=== PATIENT | male | born 1980 | race African-American/Black ===

== ENCOUNTER 2018-10-08 21:52 | Inpatient (IN) | payer MEDICARE ==
[~2018-10-08] VITALS: Ht 182.9 cm; Wt 94.8 kg
[2018-10-08] MEDS ORDERED: IV NORMAL SALINE 500 ML BAG IV ONE (22:15)
--- NOTE | 2018-10-08 22:20 | NUR ---
Patient ambulated with stable gait. Speech is not clear, and has trouble speaking. Patient is alert and oriented but appears aphasic. Patient came for c/o slurred speech since 1400 10/07/18. Last well known date was 10/07/18 @ 0930 per patient's girlfriend. Respiratory even and unlabored, no cough no sob. No cardiovascular distress noted. Denies any n/v/d light headedness. Patient in bed at lowest position, seizure precautions implemented. Girlfriend at bedside accompanying patient.
[2018-10-08] MEDS ORDERED: CLONIDINE HCL 0.2 MG TABLET PO ONE (22:30)
[2018-10-08] MEDS ORDERED: SERT100T PO (22:31)
[2018-10-08] MEDS ORDERED: CLONIDINE HCL 0.2 MG TABLET ONE (22:31)
[2018-10-08] MEDS ORDERED: IRBE300T19 PO (22:31)
--- NOTE | 2018-10-08 22:32 | NUR ---
Patient transported to CT in stable condition.
[2018-10-08 22:41] LABS: CREATININE 2.2 mg/dL (0.6-1.3); POTASSIUM 4.1 mmol/L (3.5-5.1)
[2018-10-08 22:42] LABS: BASOPHILS % (AUTO) 0.4 % (0.0-2.0); EOSINOPHILS # (AUTO) 0.1 K/uL (0.0-0.7); EOSINOPHILS % (AUTO) 1.5 % (0.0-7.0); HEMATOCRIT 46.6 % (36.7-47.1); LYMPHOCYTES # (AUTO) 1.9 K/uL (20.0-40.0); LYMPHOCYTES % (AUTO) 22.1 % (20.5-51.5); MEAN CORPUSCULAR HEMOGLOBIN 30.6 uug (23.8-33.4); MEAN CORPUSCULAR HGB CONC 34 g/dL (32.5-36.3); MEAN CORPUSCULAR VOLUME 89.1 fL (73.0-96.2); MONOCYTES # (AUTO) 0.9 K/uL (2.0-10.0); MONOCYTES % (AUTO) 9.8 % (0.0-11.0); NEUTROPHILS # (AUTO) 5.8 K/uL (1.8-8.9); NEUTROPHILS % (AUTO) 66.2 % (38.5-71.5); PLATELET COUNT (AUTO) 118 K/uL (152-348); RED BLOOD CELL COUNT(AUTO) 5.23 MIL/uL (4.06-5.63); WHITE BLOOD COUNT (AUTO) 8.7 K/uL (3.6-10.2)
[2018-10-08 22:47] LABS: BILIRUBIN,DIRECT 0.1 mg/dL (0.0-0.2); BILIRUBIN,TOTAL 0.7 mg/dL (0.2-1.0); TOTAL PROTEIN, SERUM 8.4 g/dL (6.4-8.2)
[2018-10-08] MEDS ORDERED: LABETALOL HCL 100 MG/20 ML VIAL ONE (23:14)
[2018-10-08] MEDS ORDERED: LABETALOL HCL 100 MG/20 ML VIAL IV ONE (23:15)
[2018-10-08] MEDS ORDERED: ASPIRIN 325 MG TABLET ONE (23:24)
--- NOTE | 2018-10-08 23:26 | NUR ---
Report given to JANNETH Correia
[2018-10-08] MEDS ORDERED: ASPIRIN 325 MG TABLET PO ONE (23:30)
[2018-10-08] MEDS ORDERED: hydrALAZINE HCL 20 MG/1 ML VIAL IV PRN (23:30)
[2018-10-08] MEDS ORDERED: ACETAMINOPHEN 325 MG TABLET PO PRN (23:30)
[2018-10-08] MEDS ORDERED: MORPHINE SULFATE 2 MG/1 ML DISP.SYRIN IV PRN (23:45)
[2018-10-08] MEDS ORDERED: ONDANSETRON 4 MG/2 ML VIAL IV PRN (23:45)
[2018-10-08] MEDS ORDERED: ADALAT PO (23:52)
[2018-10-08] MEDS ORDERED: LEVE500T9 PO (23:52)
[2018-10-09 00:01] LABS: MAGNESIUM 2.3 mg/dL (1.8-2.4)
[2018-10-09 00:03] LABS: THYROID STIMULATING HORMONE 4.909 mIU/mL (0.358-3.740)
--- NOTE | 2018-10-09 00:45 | NUR ---
ADMITTED PATIENT ON TELE FLOOR UNDER THE CARE OF JAZMINE CANTOR, BELONGING LIST DONE. PATIENT ALERT ORIENTED WITH ASPHASIA, NO WEAKNESS NOTED ON BOTH UPPERS ARMS, BOTH LOWER ARMS, CONT TO MONITOR.
[2018-10-09 00:54] VITALS: BP 125/90
--- NOTE | 2018-10-09 00:58 | NUR ---
Patient transported to TELE in stable condition.
[2018-10-09] MEDS: IV NS 1000 ML 1,000 ML IV PRN ×2 (01:00→16:42)
--- NOTE | 2018-10-09 02:04 | NUR ---
NOTIFY EDER JOHN REGARDING PATIENT REQUEST FOR SLEEPING MEDICATIONS, WITH ORDER.
[2018-10-09 02:10] LABS: *BILIRUBIN,URIN NEGATIVE (NEGATIVE); *CLARITY,URINE CLEAR (CLEAR); *COLOR,URINE YELLOW (YELLOW); *KETONES,URINE NEGATIVE (NEGATIVE); *UROBILINOGEN,URINE 0.2 E.U./dl (NORMAL); LEUKOCYTE ESTERASE ,URINE NEGATIVE (NEGATIVE); NITRITE, URINE NEGATIVE (NEGATIVE); PH,URINE 5.5 (5.0-8.0); UGLUCOSE NEGATIVE (NEGATIVE)
[2018-10-09 02:12] LABS: *BLOOD, URINE TRACE (NEGATIVE)
[2018-10-09] MEDS: ZOLPIDEM 5 MG TABLET PO PRN ×2 (02:13→21:19)
[2018-10-09 02:16] LABS: BACTERIA,URINE NONE SEEN /HPF (NONE SEEN); RBC,URINE 0-3 /HPF (0-3); WBC,URINE 0-3 /HPF (0-3)
[2018-10-09 02:17] LABS: SQUAMOUS EPITHELIAL CELL,UR FEW /HPF (NONE SEEN)
[2018-10-09 04:00] VITALS: BP 115/80
[2018-10-09 06:33] LABS: BASOPHILS % (AUTO) 0.3 % (0.0-2.0); EOSINOPHILS # (AUTO) 0.1 K/uL (0.0-0.7); EOSINOPHILS % (AUTO) 1.9 % (0.0-7.0); HEMATOCRIT 43.9 % (36.7-47.1); HEMOGLOBIN 14.9 g/dL (12.5-16.3); LYMPHOCYTES # (AUTO) 1.8 K/uL (20.0-40.0); LYMPHOCYTES % (AUTO) 23.7 % (20.5-51.5); MEAN CORPUSCULAR HEMOGLOBIN 30.6 uug (23.8-33.4); MEAN CORPUSCULAR HGB CONC 34 g/dL (32.5-36.3); MEAN CORPUSCULAR VOLUME 90.4 fL (73.0-96.2); MONOCYTES # (AUTO) 0.6 K/uL (2.0-10.0); NEUTROPHILS # (AUTO) 5.1 K/uL (1.8-8.9); NEUTROPHILS % (AUTO) 66.1 % (38.5-71.5); PLATELET COUNT (AUTO) 106 K/uL (152-348); RED BLOOD CELL COUNT(AUTO) 4.86 MIL/uL (4.06-5.63); WHITE BLOOD COUNT (AUTO) 7.7 K/uL (3.6-10.2)
[2018-10-09 06:38] LABS: POTASSIUM 3.6 mmol/L (3.5-5.1)
--- NOTE | 2018-10-09 06:43 | NUR ---
PATIENT ALERT ORIENTED, APHASIC BUT PATIENT ABLE TO VERBALIZE NEEDS. PATIENT WAS GIVEN HAND OUT OF SMOKING CESSATION, AND STROKE PACKET FOR INSTRUCTIONS. PATIENT IN TELE MONITOR SINUS RHYTHM AT THIS TIME, NO SOB NO CHEST PAIN NOTED. CONT TO MONITOR.
[2018-10-09] MEDS: PANTOPRAZOLE SODIUM 40 MG TABLET.DR PO SCH (06:50)
--- NOTE | 2018-10-09 07:20 | NUR ---
RECEIVED PATIENT IN BED ASLEEP EASILY AROUSABLE ON ROUNDS NODS HEAD TO YES AND NO RESPONSES BUT HAS EXPRESSIVE APHASIA AT THIS TIME REMAIN ON TELE WITH NO ECTOPY NO SOB CALL LIGHTS AND PERSONAL BELONGINGS ARE WITHIN EASY REACH WILL CONTINUE TO OBSERVE
[2018-10-09] MEDS ORDERED: GADOTERIDOL 279.3 MG/ML, 15 ML VIAL ONE (08:10)
[2018-10-09] MEDS: SERTRALINE HCL 100 MG TABLET PO SCH (08:47)
[2018-10-09] MEDS: LOSARTAN POTASSIUM 50 MG TABLET PO SCH (08:48)
[2018-10-09] MEDS: ASPIRIN EC 81 MG TABLET.DR PO SCH (08:48)
[2018-10-09] MEDS ORDERED: SERTRALINE HCL 100 MG TABLET PO SCH (09:00)
--- NOTE | 2018-10-09 09:11 | NUR ---
FOLLOWING COMMAND BUT UNABLE TO EXPRESS HIMSELF ALLL NEEDS MUST BE ANTICIPATED AND SATISFIED
[2018-10-09] MEDS ORDERED: ADALAT PO SCH (09:30)
[2018-10-09] MEDS ORDERED: LEVETIRACETAM 500 MG TABLET PO SCH (09:30)
--- NOTE | 2018-10-09 09:44 | NUR ---
PATIENT SEEN BY THE PHYSICAL THERAPY FOR THERAPEUTIC EXERCISES ABLE TO WALK IN THE [address] WAY WITH CONTACT GUARG ASSIST AND BACK TO THE CHAIR AND PER THE THERAPIST PATIENT WILL NOT REQUIRE PHYSICAL THERAPY AT THIS TIME
[2018-10-09 11:41] VITALS: BP 133/85
[2018-10-09 12:13] LABS: *BILIRUBIN,URIN NEGATIVE (NEGATIVE); *BLOOD, URINE NEGATIVE (NEGATIVE); *CLARITY,URINE CLEAR (CLEAR); *COLOR,URINE YELLOW (YELLOW); *KETONES,URINE NEGATIVE (NEGATIVE); *UROBILINOGEN,URINE 0.2 E.U./dl (NORMAL); LEUKOCYTE ESTERASE ,URINE NEGATIVE (NEGATIVE); NITRITE, URINE NEGATIVE (NEGATIVE); UGLUCOSE NEGATIVE (NEGATIVE)
[2018-10-09 12:18] LABS: BACTERIA,URINE NONE SEEN /HPF (NONE SEEN); RBC,URINE 0-3 /HPF (0-3); WBC,URINE 0-3 /HPF (0-3)
[2018-10-09] MEDS ORDERED: NIFE90TA2 PO (12:18)
[2018-10-09 12:19] LABS: SQUAMOUS EPITHELIAL CELL,UR FEW /HPF (NONE SEEN)
[2018-10-09] MEDS: NIFEdipine XL 90 MG TABSR PO SCH ×2 (12:56→16:42)
--- NOTE | 2018-10-09 14:15 | NUR ---
PATIENT PICKED UP BY AMBULANCE FOR MRI OF THE BRAIN ORDERED IN SATISFACTORY CONDITION.
[2018-10-09] MEDS ORDERED: ALLO300T2 PO (14:50)
[2018-10-09 16:00] LABS: *CREATININE,URINE 59.9 mg/dL (30-125); *URINE TOTAL PROTEIN RANDOM 81.8 mg/dL (<150/24HR)
--- NOTE | 2018-10-09 16:30 | NUR ---
PATIENT RETURNED BACK TO HIS ROOM BY AMBULANCE S/P MRI OF THE BRAIN IN SATISFACTORY CONDITION.
[2018-10-09 16:32] VITALS: BP 133/90
--- NOTE | 2018-10-09 18:00 | NUR ---
RESULT OF THE MRI OF THE BRAIN RELAYED TO DR FRANCHESKA ALEJANDRE STATED THAT THE NEUROLOGIST WILL SEE PATIENT.
[2018-10-09 20:31] VITALS: BP 126/82
[2018-10-09] MEDS: LEVETIRACETAM 500 MG TABLET PO SCH (20:34)
[2018-10-09] MEDS: ATORVASTATIN 40 MG TABLET PO SCH (20:34)
[2018-10-09] MEDS ORDERED: ATORVASTATIN 20 MG TABLET PO SCH (21:00)
[2018-10-10] MEDS: PANTOPRAZOLE SODIUM 40 MG TABLET.DR PO SCH (06:04)
[2018-10-10] MEDS: IV NS 1000 ML 1,000 ML IV PRN ×2 (06:07→23:23)
[2018-10-10 06:18] VITALS: BP 119/82
--- NOTE | 2018-10-10 07:20 | NUR ---
RECEIVED PATIENT SITTING UP ON THE CHAIR ABLE TO EXPRESS SELF BETTER IN TERMS OF HIS APHASIA ALERT AND ORIENTED REMAIN ON IVF ORDERED THROUGH HIS RIGHT ANTECUBITAL WITH NO S/S OF INFILTERATION ON SITE.NO SEIZURE ACTIVITIES .CALL LIGHTS AND PERSONAL BELONGINGS PLACED WITHIN EASY REACH MADE COMFORTABLE WILL CONTINIE TO OBSERVE.
[2018-10-10] MEDS: ASPIRIN EC 81 MG TABLET.DR PO SCH (08:30)
[2018-10-10] MEDS: SERTRALINE HCL 100 MG TABLET PO SCH (08:30)
[2018-10-10] MEDS: LEVETIRACETAM 500 MG TABLET PO SCH ×2 (08:30→20:29)
[2018-10-10] MEDS: LOSARTAN POTASSIUM 50 MG TABLET PO SCH (08:31)
[2018-10-10] MEDS ORDERED: NIFEdipine XL 90 MG TABSR PO SCH (09:00)
--- NOTE | 2018-10-10 10:30 | NUR ---
SPEECH THERAPIST HERE SEEN PATIENT AWAITING FOR INPUT AT THIS TIME
--- NOTE | 2018-10-10 11:26 | NUR ---
PATIENT SEEN AND EXAMINED BY ROSEY REGISTERED PHLEBOTOMIST PART TIME WITH NEW ORDERS AND NOTED
[2018-10-10 11:50] LABS: PHOSPHOROUS 2.7 mg/dL (2.5-4.9); POTASSIUM 4.3 mmol/L (3.5-5.1)
[2018-10-10 12:00] VITALS: BP 153/105
[2018-10-10 12:22] LABS: BASOPHILS % (AUTO) 0.4 % (0.0-2.0); CREATININE 1.7 mg/dL (0.6-1.3); EOSINOPHILS # (AUTO) 0.1 K/uL (0.0-0.7); EOSINOPHILS % (AUTO) 1.4 % (0.0-7.0); HEMATOCRIT 45.8 % (36.7-47.1); HEMOGLOBIN 15.7 g/dL (12.5-16.3); LYMPHOCYTES # (AUTO) 1.4 K/uL (20.0-40.0); LYMPHOCYTES % (AUTO) 16.8 % (20.5-51.5); MEAN CORPUSCULAR HEMOGLOBIN 30.6 uug (23.8-33.4); MEAN CORPUSCULAR HGB CONC 34 g/dL (32.5-36.3); MEAN CORPUSCULAR VOLUME 89.5 fL (73.0-96.2); MONOCYTES # (AUTO) 0.6 K/uL (2.0-10.0); MONOCYTES % (AUTO) 7.5 % (0.0-11.0); NEUTROPHILS # (AUTO) 6.3 K/uL (1.8-8.9); NEUTROPHILS % (AUTO) 73.9 % (38.5-71.5); PLATELET COUNT (AUTO) 120 K/uL (152-348); RED BLOOD CELL COUNT(AUTO) 5.12 MIL/uL (4.06-5.63); WHITE BLOOD COUNT (AUTO) 8.5 K/uL (3.6-10.2)
--- NOTE | 2018-10-10 12:25 | NUR ---
PATIENT C/O FEELING ANXIOUS CALLED AND NOTIFIED VIOLETA CANTOR WITH ORDER FOR ATIVAN GIVEN AT 1241 AND HELPFUL.
[2018-10-10] MEDS: LORAZEPAM 0.5 MG TABLET PO PRN (12:41)
[2018-10-10 16:45] VITALS: BP 149/110
--- NOTE | 2018-10-10 17:00 | NUR ---
B/P 149/110 CALLED FAIZA CANTOR AND LEFT HER A MESSAGE PATIENT HAS NO SYMPTOMS AND IS SITTING UP ON THE CHAIR AT THIS TIME.
--- NOTE | 2018-10-10 17:00 | NUR ---
PATIENT SEEN BY [facility] REAL ESTATE REP WITH NEW ORDERS AND NOTED DID TALK WITH THE PATIENT AND THE FIANCE AND EXPLAINED TO THEM THE NEXT PLAN OF CARE AND THEY EXPRESSED UNDERSTANDING.
--- NOTE | 2018-10-10 18:09 | NUR ---
IV SITE RIGHT AC IS INFILTERATED NEW ONE INSERTED TO HIS LEFT HAND GAUGE 20 REMAIN ON IVF ORDERED.
[2018-10-10 19:30] VITALS: BP 159/109
[2018-10-10 19:50] VITALS: BP 159/109
[2018-10-10] MEDS ORDERED: NIFEdipine XL 90 MG TABSR PO ONE (20:00)
--- NOTE | 2018-10-10 20:00 | NUR ---
Patient received sitting up in bed with family at bedside. Patient is alert and oriented x4 and h as no complaints of pain or discomfort at this time. IV on right hand is patent and intact and running NS IVF is running at 100mL/hr. All safety and fall precaution measures are in place. Call light and personal items are within reach at all times. Will continue to monitor.
[2018-10-10] MEDS: ATORVASTATIN 40 MG TABLET PO SCH (20:25)
[2018-10-10] MEDS: ZOLPIDEM 5 MG TABLET PO PRN (23:28)
[2018-10-11 00:03] VITALS: BP 149/100
[2018-10-11 04:00] VITALS: BP 144/104
--- NOTE | 2018-10-11 05:00 | NUR ---
Patient slept comfortably throughout night with no complaints of pain or discomfort at verbalized. IV on right hand is patent and intact and running NS IVF at 100mL/hr. All safety and fall precaution measures are in place. Call light and personal items are within reach at all times.
[2018-10-11] MEDS: PANTOPRAZOLE SODIUM 40 MG TABLET.DR PO SCH (06:09)
[2018-10-11 06:40] LABS: BASOPHILS % (AUTO) 0.4 % (0.0-2.0); EOSINOPHILS # (AUTO) 0.2 K/uL (0.0-0.7); EOSINOPHILS % (AUTO) 2.1 % (0.0-7.0); HEMATOCRIT 42.5 % (36.7-47.1); HEMOGLOBIN 14.9 g/dL (12.5-16.3); LYMPHOCYTES # (AUTO) 1.7 K/uL (20.0-40.0); LYMPHOCYTES % (AUTO) 19.9 % (20.5-51.5); MEAN CORPUSCULAR HGB CONC 35 g/dL (32.5-36.3); MEAN CORPUSCULAR VOLUME 88.6 fL (73.0-96.2); MONOCYTES # (AUTO) 0.8 K/uL (2.0-10.0); MONOCYTES % (AUTO) 9.1 % (0.0-11.0); NEUTROPHILS # (AUTO) 5.8 K/uL (1.8-8.9); NEUTROPHILS % (AUTO) 68.5 % (38.5-71.5); PLATELET COUNT (AUTO) 108 K/uL (152-348); WHITE BLOOD COUNT (AUTO) 8.5 K/uL (3.6-10.2)
[2018-10-11 06:51] LABS: CREATININE 1.6 mg/dL (0.6-1.3); PHOSPHOROUS 3.1 mg/dL (2.5-4.9); POTASSIUM 4.2 mmol/L (3.5-5.1)
--- NOTE | 2018-10-11 08:00 | NUR ---
Pt. is resting in bed alert oriented x4, speech delayed due to stroke. IV in R hand 20 guage intact patent running fluids. Pt. on tele monitor. Pt. denies any pain or discomfort. Pt. denies any feelings of SOB or difficulty breathing. Safety measures in place. Will continue to monitor.
[2018-10-11 08:52] VITALS: BP 158/106
[2018-10-11] MEDS: LEVETIRACETAM 500 MG TABLET PO SCH ×2 (09:06→21:27)
[2018-10-11] MEDS: SERTRALINE HCL 100 MG TABLET PO SCH (09:07)
[2018-10-11] MEDS: LOSARTAN POTASSIUM 50 MG TABLET PO SCH (09:07)
[2018-10-11] MEDS: ASPIRIN EC 81 MG TABLET.DR PO SCH (09:07)
[2018-10-11] MEDS: CLOPIDOGREL 75 MG TABLET PO SCH (09:07)
--- NOTE | 2018-10-11 09:50 | NUR ---
Pt. on plavix for stroke. Platelet count 108. Charge nurse made aware and to continue to give plavix. Educated pt. on S&S of stroke and prevention of stroke. Pt. is understanding of information. Pt. speech delayed but attempting to speak.
--- NOTE | 2018-10-11 09:50 | NUR ---
Pt. on Plavix 75 mg Addendum: 10/11/18 at 0950 by MAX NAM RN Amended: Links added.
[2018-10-11 11:34] VITALS: BP 139/96
[2018-10-11 11:34] LABS: *RHEUMATOID FACTOR SCREEN NEGATIVE (NEGATIVE)
[2018-10-11] MEDS ORDERED: MAGNESIUM HYDROXIDE 30 ML LIQUID UDC PO PRN (12:00)
[2018-10-11] MEDS ORDERED: BISACODYL 10 MG SUPP.RECT RC PRN (12:00)
[2018-10-11] MEDS: NIFEdipine XL 60 MG TABSR PO SCH ×2 (12:20→21:27)
[2018-10-11] MEDS: LORAZEPAM 0.5 MG TABLET PO PRN (12:20)
--- NOTE | 2018-10-11 13:37 | NUR ---
Ativan given PO per request of patient for anxiety. PT. d/c from telemetry to med surg. Pt. had large bowel movement today after prune juice. Will continue to monitor pt.
[2018-10-11 16:02] VITALS: BP 152/105
--- NOTE | 2018-10-11 19:00 | NUR ---
Pt. resting in bed throughout shift with girlfriend at bedside. IV in R hand 20 gauge intact patent hep lock. Bed rails padded for seizure preautions. Stool sample sent to lab. Pt. d/c from telemetry. Safety measures in place. Call light within reach. Will endorse to PM nurse.
[2018-10-11 20:00] VITALS: BP 160/110
[2018-10-11] MEDS ORDERED: DOCUSATE SODIUM 100 MG CAPSULE PO SCH (21:00)
[2018-10-11] MEDS: ATORVASTATIN 40 MG TABLET PO SCH (21:27)
[2018-10-12 05:18] VITALS: BP 143/102
[2018-10-12 06:06] LABS: HEPATITIS B SURFACE AB Non Reactive (.); HEPATITIS B SURFACE AG Negative (Negative)
[2018-10-12 06:27] LABS: BASOPHILS % (AUTO) 0.4 % (0.0-2.0); EOSINOPHILS # (AUTO) 0.2 K/uL (0.0-0.7); EOSINOPHILS % (AUTO) 2.4 % (0.0-7.0); HEMATOCRIT 45.2 % (36.7-47.1); HEMOGLOBIN 15.7 g/dL (12.5-16.3); LYMPHOCYTES # (AUTO) 1.9 K/uL (20.0-40.0); LYMPHOCYTES % (AUTO) 20.7 % (20.5-51.5); MEAN CORPUSCULAR HEMOGLOBIN 31.1 uug (23.8-33.4); MEAN CORPUSCULAR HGB CONC 35 g/dL (32.5-36.3); MEAN CORPUSCULAR VOLUME 89.3 fL (73.0-96.2); MONOCYTES # (AUTO) 0.8 K/uL (2.0-10.0); MONOCYTES % (AUTO) 8.8 % (0.0-11.0); NEUTROPHILS # (AUTO) 6.3 K/uL (1.8-8.9); NEUTROPHILS % (AUTO) 67.7 % (38.5-71.5); PLATELET COUNT (AUTO) 122 K/uL (152-348); RED BLOOD CELL COUNT(AUTO) 5.06 MIL/uL (4.06-5.63); WHITE BLOOD COUNT (AUTO) 9.3 K/uL (3.6-10.2)
[2018-10-12 06:30] LABS: BILIRUBIN,TOTAL 0.6 mg/dL (0.2-1.0); CREATININE 1.8 mg/dL (0.6-1.3); PHOSPHOROUS 3.8 mg/dL (2.5-4.9); POTASSIUM 4.1 mmol/L (3.5-5.1); TOTAL PROTEIN, SERUM 7.8 g/dL (6.4-8.2)
[2018-10-12] MEDS: PANTOPRAZOLE SODIUM 40 MG TABLET.DR PO SCH (06:42)
--- NOTE | 2018-10-12 07:15 | NUR ---
Received Patient in Bed, awake and Responsive. No signs of Respiratory distress noted. No Complain of Pain or Discomfort. IV site on Right Hand Gauge 20 intact. All needs attended and met. will continue to monitor.
[2018-10-12] MEDS: ASPIRIN EC 81 MG TABLET.DR PO SCH (09:50)
[2018-10-12] MEDS: LOSARTAN POTASSIUM 50 MG TABLET PO SCH (09:50)
[2018-10-12] MEDS: SERTRALINE HCL 100 MG TABLET PO SCH (09:51)
[2018-10-12] MEDS: LEVETIRACETAM 500 MG TABLET PO SCH (09:51)
[2018-10-12] MEDS: NIFEdipine XL 60 MG TABSR PO SCH (09:51)
[2018-10-12] MEDS: CLOPIDOGREL 75 MG TABLET PO SCH (09:51)
[2018-10-12 10:08] LABS: ALBUMIN 3.8 g/dL (2.9-4.4); ALPHA-1-GLOBULIN 0.2 g/dL (0.0-0.4); ALPHA-2-GLOBULIN 0.8 g/dL (0.4-1.0); BETA GLOBULIN 1.3 g/dL (0.7-1.3); GAMMA GLOBULIN 1.3 g/dL (0.4-1.8); GLOBULIN, TOTAL 3.7 g/dL (2.2-3.9); M-SPIKE Not Observed g/dL (Not Observed)
[2018-10-12] MEDS ORDERED: NIFE60TA2 PO (10:55)
[2018-10-12] MEDS ORDERED: ATOR40TA PO (10:55)
[2018-10-12] MEDS ORDERED: CLOP75TA33 PO (10:55)
[2018-10-12] MEDS ORDERED: ASPI-618 PO (10:55)
[2018-10-12] MEDS ORDERED: LOSA50TA3 PO (10:55)
[2018-10-12 11:02] VITALS: BP 153/101
[2018-10-12 11:09] LABS: *IMMUNOGLOBULIN G, SERUM 1378 mg/dL (700-1600); IMMUNOGLOBULIN A, SERUM 365 mg/dL (90-386); IMMUNOGLOBULIN M, SERUM 57 mg/dL (20-172)
--- NOTE | 2018-10-12 11:45 | NUR ---
Patient was seen and examined by SAKSHI Valentine with Order to Discharge today.
--- NOTE | 2018-10-12 12:00 | NUR ---
patient in bed awake and verbally responsive, patient with discharge order today, Discharged Instructions and printed materials given to patient and verbalized understanding, patient with Prescription Order, Pharmacy explained Medication instructions to patient and responsible libertarian (girlfriend) verbalized Understanding. Removed IV access and wrist band. All belongings was sent to patient. Patient was accompanied by girlfriend out of the building.
[2018-10-12 12:07] LABS: PTT-LA 39.4 sec (0.0-51.9); THROMBIN TIME 17.6 sec (0.0-23.0)
[2018-10-12 17:09] LABS: *ANTI-SCLERODERMA-70 AB <0.2 AI (0.0-0.9); *SJOGREN'S ANTI-SS-A <0.2 AI (0.0-0.9); *SJOGREN'S ANTI-SS-B <0.2 AI (0.0-0.9); *SMITH ANTIBODIES <0.2 AI (0.0-0.9); ANTI-DNA(DS) AB, QN <1 IU/mL (0-9)
[2018-10-13 04:06] LABS: LUPUS INTERPRETATION Comment: (.)
[2018-10-13 15:06] LABS: BETA-2-GLYCOPROTEIN IGG/M/A < 9 (0-25)
== END 2018-10-12 12:31 | disposition home or self-care (01) | DRG 64 ==
LOC: ER 21:55 → TELE3 23:05 → MEDSURG3 10-11 13:45
PROVIDERS: ADMIT Nurse Practitioner Acute Care; ATTEND Nurse Practitioner Acute Care
DX: I63.9 Cerebral infarction, unspecified (principal); N17.0 Acute kidney failure with tubular necrosis; N04.9 Nephrotic syndrome with unspecified morphologic changes; D68.59 Other primary thrombophilia; R47.01 Aphasia; G40.909 Epilepsy, unspecified, not intractable, without status epilepticus; R40.2362 Coma scale, best motor response, obeys commands, at arrival to emergency department; R40.2142 Coma scale, eyes open, spontaneous, at arrival to emergency department; R40.2252 Coma scale, best verbal response, oriented, at arrival to emergency department; R29.701 NIHSS score 1; E78.5 Hyperlipidemia, unspecified; M16.11 Unilateral primary osteoarthritis, right hip; I63.89 Other cerebral infarction; I13.10 Hypertensive heart and chronic kidney disease without heart failure, with stage 1 through stage 4 chronic kidney disease, or unspecified chronic kidney disease; N18.9 Chronic kidney disease, unspecified; N05.9 Unspecified nephritic syndrome with unspecified morphologic changes; D69.6 Thrombocytopenia, unspecified
CPT/HCPCS: 36415; 70030-TC; 70450; 70553; 71045; 76700; 82652; 82747; 82784; 83690; 83735; 83970; 84100; 84155; 84156; 84165; 84300; 84443; 85014; 85025; 85305; 85613; 85651; 85730; 86038; 86334; 86430; 86677; 86706; 86803; 87340; 87806; 93005; 93307; 93880; A4663; A9579; G0378; J3490; J7030; J7040